=== PATIENT | female | born 2005 | race Two or more races ===

== ENCOUNTER 2024-05-04 18:34 | Emergency (ER) | payer MEDICAID ==
[~2024-05-04] VITALS: Ht 180.3 cm; Wt 81.6 kg
[2024-05-04 18:50] VITALS: BP 121/76; TEMP 97.9; O2SAT 99
[2024-05-04] MEDS ORDERED: CIPR7.5D9 LEFT EAR (19:07)
== END 2024-05-04 19:33 | disposition home or self-care (01) ==
LOC: ER 18:40
DX: H60.92 Unspecified otitis externa, left ear (principal)